=== PATIENT | male | born 1950 | race Caucasian/White ===

== ENCOUNTER → 2019-05-07 | Outpatient (CLI) | payer MEDICARE, OTHER | END | disposition home or self-care (01) | LOC: RAH 14:29 | PROVIDERS: ATTEND Internal Medicine Critical Care Medicine | DX: E04.1 Nontoxic single thyroid nodule (principal) | CPT/HCPCS: 76536 ==

== ENCOUNTER 2021-06-10 14:11 | Inpatient (IN) | payer MEDICARE, OTHER ==
[~2021-06-10] VITALS: Ht 182.9 cm; Wt 97.1 kg
[2021-06-10 14:12] VITALS: BP 116/62
[2021-06-10 14:54] LABS: BASOPHILS % (AUTO) 0.9 % (0.0-5.0); EOSINOPHILS % (AUTO) 1.9 % (0.0-8.0); HEMATOCRIT 44.2 % (42-54); LYMPHOCYTES % (AUTO) 8.9 % (21.0-51.0); MEAN CORPUSCULAR HEMOGLOBIN 28.2 pg (27.0-33.0); MEAN CORPUSCULAR HGB CONC 33.9 g/dL (32.0-36.0); MEAN CORPUSCULAR VOLUME 83.1 fL (79-99); MONOCYTES % (AUTO) 6.1 % (3.0-13.0); NEUTROPHILS % (AUTO) 81.8 % (40.0-77.0); PLATELET COUNT (AUTO) 234 K/uL (130-400); RED BLOOD CELL COUNT(AUTO) 5.32 MIL/uL (4.50-6.20); RED CELL DISTRIBUTION WIDTH 12.5 % (11.0-15.5); WHITE BLOOD COUNT (AUTO) 7.8 K/uL (4.8-10.8)
[2021-06-10 15:23] LABS: CARBON DIOXIDE 28 mmol/L (21-32); CHLORIDE 96 mmol/L (101-111); CREATININE 2.8 mg/dL (0.5-1.5); GLOMERULAR FILTR. RATE CALC 24 mL/min (>60); GLUCOSE,RANDOM 367 mg/dL (70-105); POTASSIUM 4.2 mmol/L (3.5-5.1); SODIUM SERUM 132 mmol/L (136-145); UREA NITROGEN, BLOOD 36 mg/dL (7-18)
[2021-06-10 15:24] LABS: ALBUMIN 2.9 g/dL (3.5-5.0)
[2021-06-10 15:25] LABS: B-TYPE NATRIURETIC PEPTIDE 23 pg/mL (0-100)
[2021-06-10] MEDS ORDERED: 0.9%NACL 1000ML 1,000 ML IV ONE (15:30)
[2021-06-10] MEDS ORDERED: INSULIN HUMULIN R 100 UNIT/ML 3ML SQ ONE (15:30)
[2021-06-10 15:44] LABS: ALANINE AMINOTRANSFERASE 16 U/L (12-78); ASPARTATE AMINOTRANSFERASE 14 U/L (10-37); BILIRUBIN,TOTAL 0.5 mg/dL (0.2-1.0); TOTAL PROTEIN, SERUM 7.3 g/dL (6.0-8.3)
[2021-06-10 15:45] LABS: CRP QUANTITATIVE < 2.00 mg/L (0.00-9.0)
[2021-06-10 16:10] VITALS: BP 129/79
[2021-06-10 17:58] LABS: APPEARANCE,URINE Clear (CLEAR); BILIRUBIN,URINE Negative (NEGATIVE); COLOR,URINE Yellow (YELLOW); GLUCOSE, URINE (UA) >=1000 mg/dL (NEGATIVE); KETONES,URINE Negative (NEGATIVE); LEUKOCYTE ESTERASE ,URINE Negative (NEGATIVE); NITRATE,URINE Negative (NEGATIVE); OCCULT BLOOD,URINE Trace (NEGATIVE); PROTEIN,URINE 300 mg/dL (NEGATIVE)
[2021-06-10 18:03] VITALS: BP 124/83
[2021-06-10 18:05] LABS: RBC,URINE 0-1 /HPF (0-1)
[2021-06-10 18:06] LABS: BACTERIA,URINE Rare /HPF (None Seen); HYALINE CASTS, URINE 0-1 /LPF (0-1 /LPF); MUCUS,URINE Rare LPF (None Seen); SQUAMOUS EPITHELIAL CELL,UR Rare /HPF (0-2)
[2021-06-10 19:40] VITALS: BP 140/80
[2021-06-10] MEDS ORDERED: ACETAMINOPHEN 650 MG SUPPOSITORY RC PRN (21:00)
[2021-06-10] MEDS: INSULIN HUMULIN R 100 UNIT/ML 3ML SQ SCH (21:00)
[2021-06-10] MEDS ORDERED: MAGNESIUM CITRATE 296 ML SOLUTION PO ONE (21:00)
[2021-06-10] MEDS ORDERED: CLONIDINE HCL 0.1 MG TABLET PO PRN (21:00)
[2021-06-10] MEDS ORDERED: ONDANSETRON 4MG INJ IVP PRN (21:00)
[2021-06-10] MEDS ORDERED: ALBUTEROL 0.083% 2.5 MG/3 ML INH IH PRN (21:00)
[2021-06-10] MEDS ORDERED: LACTULOSE 20 GM/30 ML UDCUP PO PRN (21:00)
[2021-06-10] MEDS ORDERED: ACETAMINOPHEN 325 MG TAB PO PRN (21:00)
[2021-06-10] MEDS ORDERED: ASPIRIN 325MG TAB PO ONE (21:00)
[2021-06-10] MEDS: LACTATED RINGERS 1000ML 1,000 ML IV SCH (21:00)
[2021-06-11] VITALS (7 sets, daily range): BP systolic 131–164; BP diastolic 71–97
[2021-06-11] MEDS ORDERED: ATORVASTATIN 40 MG TABLET PO ONE
[2021-06-11 02:49] LABS: CREATININE 2.6 mg/dL (0.5-1.5); POTASSIUM 3.8 mmol/L (3.5-5.1); THYROID STIMULATING HORMONE 1.27 uIU/mL (0.36-3.74)
[2021-06-11 04:37] LABS: BASOPHILS % (AUTO) 0.5 % (0.0-5.0); EOSINOPHILS % (AUTO) 0.6 % (0.0-8.0); LYMPHOCYTES % (AUTO) 11.4 % (21.0-51.0); MEAN CORPUSCULAR HEMOGLOBIN 28.3 pg (27.0-33.0); MEAN CORPUSCULAR HGB CONC 33.5 g/dL (32.0-36.0); MEAN CORPUSCULAR VOLUME 84.5 fL (79-99); MONOCYTES % (AUTO) 6.8 % (3.0-13.0); NEUTROPHILS % (AUTO) 80.4 % (40.0-77.0); PLATELET COUNT (AUTO) 219 K/uL (130-400); RED BLOOD CELL COUNT(AUTO) 5.09 MIL/uL (4.50-6.20); RED CELL DISTRIBUTION WIDTH 12.6 % (11.0-15.5); WHITE BLOOD COUNT (AUTO) 9.5 K/uL (4.8-10.8)
[2021-06-11 06:10] LABS: HEMOGLOBIN A1C 10.9 % (4.0-6.0)
[2021-06-11] MEDS: INSULIN HUMULIN R 100 UNIT/ML 3ML SQ SCH ×4 (06:45→20:41)
[2021-06-11] MEDS ORDERED: FURO80TA3 PO (10:21)
[2021-06-11] MEDS ORDERED: LUBI24CA2 PO (10:21)
[2021-06-11] MEDS ORDERED: TAMS-1 PO (10:21)
[2021-06-11] MEDS ORDERED: SERT50TA PO (10:21)
[2021-06-11] MEDS ORDERED: BUPR300T53 PO (10:21)
[2021-06-11] MEDS ORDERED: AMLO-258 PO (10:21)
[2021-06-11] MEDS ORDERED: CLOP75TA14 PO (10:21)
[2021-06-11] MEDS ORDERED: LOSA100T58 PO (10:21)
[2021-06-11] MEDS ORDERED: ACET1TAB25 PO (10:21)
[2021-06-11] MEDS ORDERED: FOLI0.8T22 PO (10:21)
[2021-06-11] MEDS ORDERED: INSU100V12 SQ (10:21)
[2021-06-11] MEDS ORDERED: ROSU40 PO (10:21)
[2021-06-11] MEDS ORDERED: SEMA1PEN3 SQ (10:21)
[2021-06-11] MEDS: ASPIRIN 81 MG EC TAB PO SCH (10:51)
[2021-06-11] MEDS: PANTOPRAZOLE 40 MG TAB DR PO SCH (10:51)
[2021-06-11] MEDS: POLYETHYLENE GLYCOL 3350 17 GM POWD.PACK PO SCH (11:01)
[2021-06-11] MEDS: ENOXAPARIN SODIUM 40 MG/0.4 ML SYRINGE SQ SCH (11:02)
[2021-06-11] MEDS: LACTATED RINGERS 1000ML 1,000 ML IV SCH (12:14)
[2021-06-11] MEDS ORDERED: LUBIPROSTONE 24 MCG CAP PO PRN (12:30)
[2021-06-11] MEDS ORDERED: ACETAMINOPHEN WITH CODEINE 1 TAB TAB PO PRN (12:30)
[2021-06-11] MEDS: INSULIN GLARGINE 100 UNITS/ML 10 ML VIAL SQ SCH (20:40)
[2021-06-11] MEDS: BALSAM PERU/CASTOR OIL 60 GM TUBE TP SCH (20:43)
[2021-06-11] MEDS ORDERED: BALSAM PERU/CASTOR OIL 60 GM TUBE TP SCH (21:00)
[2021-06-11] MEDS ORDERED: SERTRALINE HCL 50 MG TABLET PO SCH (21:00)
[2021-06-11] MEDS ORDERED: ATORVASTATIN 40 MG TABLET PO SCH (21:00)
[2021-06-12 00:07] VITALS: BP 152/88
[2021-06-12 04:09] VITALS: BP 156/92
[2021-06-12 04:36] LABS: BASOPHILS % (AUTO) 0.7 % (0.0-5.0); EOSINOPHILS % (AUTO) 2.8 % (0.0-8.0); HEMATOCRIT 38.8 % (42-54); LYMPHOCYTES % (AUTO) 17.4 % (21.0-51.0); MEAN CORPUSCULAR HEMOGLOBIN 28.1 pg (27.0-33.0); MEAN CORPUSCULAR HGB CONC 33.5 g/dL (32.0-36.0); MONOCYTES % (AUTO) 10.2 % (3.0-13.0); NEUTROPHILS % (AUTO) 68.6 % (40.0-77.0); PLATELET COUNT (AUTO) 220 K/uL (130-400); RED BLOOD CELL COUNT(AUTO) 4.62 MIL/uL (4.50-6.20); WHITE BLOOD COUNT (AUTO) 9.4 K/uL (4.8-10.8)
[2021-06-12 05:03] LABS: ALBUMIN 2.3 g/dL (3.5-5.0); BILIRUBIN,TOTAL 0.3 mg/dL (0.2-1.0); CREATININE 2.6 mg/dL (0.5-1.5); POTASSIUM 3.7 mmol/L (3.5-5.1)
[2021-06-12] MEDS: INSULIN HUMULIN R 100 UNIT/ML 3ML SQ SCH ×3 (06:28→16:30)
[2021-06-12 08:00] VITALS: BP 164/96
[2021-06-12] MEDS ORDERED: Bupropion HCl (Wellbutrin Xl) 300 MG PO SCH (09:00)
[2021-06-12] MEDS ORDERED: FUROSEMIDE 80 MG TABLET PO SCH (09:00)
[2021-06-12] MEDS ORDERED: Vitamin B Complex/Vit C/Folic Acid PO SCH (09:00)
[2021-06-12] MEDS ORDERED: TAMSULOSIN HCL 0.4 MG CAP.ER.24H PO SCH (09:00)
[2021-06-12] MEDS ORDERED: CLOPIDOGREL 75MG TAB PO SCH (09:00)
[2021-06-12] MEDS ORDERED: AMLODIPINE 5 MG TAB PO SCH (09:00)
[2021-06-12] MEDS: BALSAM PERU/CASTOR OIL 60 GM TUBE TP SCH (09:00)
[2021-06-12] MEDS ORDERED: LOSARTAN 100 MG TABLET PO SCH (09:00)
[2021-06-12] MEDS: POLYETHYLENE GLYCOL 3350 17 GM POWD.PACK PO SCH (09:36)
[2021-06-12] MEDS: ASPIRIN 81 MG EC TAB PO SCH (09:36)
[2021-06-12] MEDS: PANTOPRAZOLE 40 MG TAB DR PO SCH (09:36)
[2021-06-12] MEDS: ENOXAPARIN SODIUM 40 MG/0.4 ML SYRINGE SQ SCH (09:37)
[2021-06-12] MEDS: INSULIN GLARGINE 100 UNITS/ML 10 ML VIAL SQ SCH (09:38)
[2021-06-12 12:00] VITALS: BP 158/103
[2021-06-12 16:00] VITALS: BP 148/92
[2021-06-18] MEDS ORDERED: Semaglutide (Ozempic) 0.5 MG SQ SCH (09:00)
== END 2021-06-12 20:11 | disposition home or self-care (01) | DRG 641 ==
LOC: EDH 14:11 → INTOOBSV 16:36 → UNDOADMOB 16:36 → EDHIP 16:36 → OBSVTOIN 16:36 → INTOOBSV 20:32 → EDHIP 20:32 → OBSVTOIN 20:32 → EDHIP 06-11 04:32 → 3AH 06-11 04:32 → UNDODISIN 06-12 20:11
PROVIDERS: ADMIT Internal Medicine Critical Care Medicine; ATTEND Internal Medicine Critical Care Medicine
DX: E86.9 Volume depletion, unspecified (principal); G93.40 Encephalopathy, unspecified; N17.9 Acute kidney failure, unspecified; I13.0 Hypertensive heart and chronic kidney disease with heart failure and stage 1 through stage 4 chronic kidney disease, or unspecified chronic kidney disease; I25.10 Atherosclerotic heart disease of native coronary artery without angina pectoris; E78.00 Pure hypercholesterolemia, unspecified; E03.9 Hypothyroidism, unspecified; E10.22 Type 1 diabetes mellitus with diabetic chronic kidney disease; R29.6 Repeated falls; J44.9 Chronic obstructive pulmonary disease, unspecified; E78.5 Hyperlipidemia, unspecified; F01.50 Vascular dementia, unspecified severity, without behavioral disturbance, psychotic disturbance, mood disturbance, and anxiety; L89.151 Pressure ulcer of sacral region, stage 1; I50.9 Heart failure, unspecified; D64.9 Anemia, unspecified; N32.89 Other specified disorders of bladder; Z66 Do not resuscitate; N18.32 Chronic kidney disease, stage 3b; E10.51 Type 1 diabetes mellitus with diabetic peripheral angiopathy without gangrene; Z79.4 Long term (current) use of insulin; Z87.891 Personal history of nicotine dependence; Z99.3 Dependence on wheelchair; Z88.5 Allergy status to narcotic agent; Z86.73 Personal history of transient ischemic attack (TIA), and cerebral infarction without residual deficits; Z20.822 Contact with and (suspected) exposure to COVID-19
CPT/HCPCS: 36415; 70450; 70544; 70547; 70551; 71045; 72148; 76770; 80048; 80053; 80061; 81001; 82140; 82550; 82948; 83036; 83735; 83874; 83880; 84100; 84443; 84484; 85025; 86140; 87040; 87077; 87088; 87186; 87635; 92522; 92610; 93005; 93306; 97039; G0378; J1650; J1815; J7120

== ENCOUNTER 2022-04-13 19:11 | Emergency (ER) | payer OTHER, MEDICARE ==
[~2022-04-13 19:11] MED LIST: ACET-2079 PO; AMLO-258 PO; BUPR300T53 PO; CLOP75TA14 PO; FOLI0.8T22 PO; FURO80TA3 PO; INSU100V12 SQ; LUBI24CA2 PO; ROSU40 PO; SEMA1PEN3 SQ; SERT50TA PO; TAMS-1 PO
[2022-04-13 20:05] LABS: BASOPHILS % (AUTO) 0.1 % (0.0-5.0); LYMPHOCYTES % (AUTO) 1.1 % (21.0-51.0); MEAN CORPUSCULAR HEMOGLOBIN 28.1 pg (27.0-33.0); MEAN CORPUSCULAR HGB CONC 33.2 g/dL (32.0-36.0); MEAN CORPUSCULAR VOLUME 84.8 fL (79-99); NEUTROPHILS % (AUTO) 91.8 % (40.0-77.0); PLATELET COUNT (AUTO) 255 K/uL (130-400); RED BLOOD CELL COUNT(AUTO) 2.31 MIL/uL (4.50-6.20); RED CELL DISTRIBUTION WIDTH 14.5 % (11.0-15.5); WHITE BLOOD COUNT (AUTO) 26.1 K/uL (4.8-10.8)
[2022-04-13 20:14] LABS: HEMATOCRIT 19.6 % (42-54)
[2022-04-13 20:30] LABS: ALBUMIN 2.2 g/dL (3.5-5.0); MAGNESIUM 2.6 mg/dL (1.80-2.40); TOTAL PROTEIN, SERUM 6.6 g/dL (6.0-8.3)
[2022-04-13 20:36] LABS: CREATININE 14.5 mg/dL (0.5-1.5); POTASSIUM 6.2 mmol/L (3.5-5.1)
[2022-04-13 20:37] LABS: B-TYPE NATRIURETIC PEPTIDE 22 pg/mL (0-100)
[2022-04-13 22:23] VITALS: BP 136/60
== END 2022-04-13 23:08 ==
LOC: EDH 19:11
DX: T83.098A Other mechanical complication of other urinary catheter, initial encounter (principal); D72.829 Elevated white blood cell count, unspecified; E87.5 Hyperkalemia; I13.11 Hypertensive heart and chronic kidney disease without heart failure, with stage 5 chronic kidney disease, or end stage renal disease; E11.22 Type 2 diabetes mellitus with diabetic chronic kidney disease; N18.6 End stage renal disease; D63.1 Anemia in chronic kidney disease; E03.9 Hypothyroidism, unspecified; G93.41 Metabolic encephalopathy; E78.00 Pure hypercholesterolemia, unspecified; Z99.2 Dependence on renal dialysis; Z86.73 Personal history of transient ischemic attack (TIA), and cerebral infarction without residual deficits; Z88.5 Allergy status to narcotic agent; Z79.899 Other long term (current) drug therapy; Z88.8 Allergy status to other drugs, medicaments and biological substances; Y84.8 Other medical procedures as the cause of abnormal reaction of the patient, or of later complication, without mention of misadventure at the time of the procedure; Y92.89 Other specified places as the place of occurrence of the external cause
CPT/HCPCS: 36415; 51702; 71045; 80053; 82550; 83605; 83735; 83880; 84484; 85025; 93005